=== PATIENT | female | born 1985 | race Caucasian/White ===

== ENCOUNTER 2022-09-30 15:29 | Inpatient (IN) | payer MEDICAID, SELFPAY ==
[2022-09-30 15:38] VITALS: BP 119/77; PULSE 76; RESP 18; TEMP 36.9; O2SAT 98; BMI 24.2
--- NOTE | 2022-09-30 15:44 | W.ED.PSYCHS ---
Documented by User: TRENA Milligan 09/30/22 16:31 HPI - Psych General: Chief Complaint: Psychiatric Symptoms Stated Complaint: psych eval/ hx si Time Seen by Provider: 09/30/22 15:44 Source: patient Mode of arrival: ambulatory Limitations: no limitations History of Present Illness: Patient is a 37-year-old female with a history of PTSD, bipolar, anxiety, depression here for complaints of worsening mental health. She states she takes Gabapentin and BuSpar and was recently started on Lamictal a few weeks ago by her psychiatrist at [facility]. She states approximately a month ago she overdosed on methamphetamine, alcohol, Gabapentin, and BuSpar. She states she was extremely sick for over a week and feels like her body has been out of whack ever since . She is reporting worsening anxiety and severe PTSD with nightmares and frequent awakenings. She states she is not currently suicidal but feels she does not trust herself at home MD complaint: feels depressed Onset (ago): day(s) Context: new medication(s) (lamictal a few wks ago) and significant life stressor Associated psychiatric symptoms: depression, racing thoughts and other (PTSD nightmares) Associated symptoms: Reports depression; Deny auditory hallucinations, visual hallucinations, homicidal ideation or suicidal ideation Treatments prior to arrival: none If self harm: admits thoughts of self harm Review of Systems Const: Denies: fever(s) or chills Card: Denies: chest pain, palpitations, lightheadedness or syncope Resp: Denies: dyspnea GI: Denies: abdominal pain, nausea, vomiting or diarrhea Skin/Breast: Denies: rash Neuro: Denies: headache(s) Psych: Reports: anxiety, depression, panic attacks, sleeping less and difficulty concentrating; Denies: visual hallucinations, auditory hallucinations, suicidal ideation or homicidal ideation Physical Exam Const: COMMON NORMALS: no acute distress, average body habitus, patient oriented x3, no limitations, healthy appearing, alert and well nourished GENERAL APPEARANCE: cooperative and well kempt Resp: COMMON NORMALS: normal respiratory effort and clear to auscultation bilaterally AUSCULTATION: clear to auscultation bilaterally Cardio: COMMON NORMALS: regular rate and regular rhythm RATE: regular rate RHYTHM: regular rhythm Extremity: GENERAL: Yes normal exam except as noted Neuro: PALOMA COMA SCALE: document GCS findings Pal[place] coma scale eye opening: Spontaneous [place] coma scale verbal response: Orientated [place] coma scale motor response: Obey commands [place] coma scale total score: 15 COMMON NORMALS: patient oriented x3 SENSORIUM/ORIENTATION: Yes alert Psych: COMMON NORMALS: mental status grossly normal, Normal thought process present, cooperative, normal affect, speech normal, activity/motor behavior normal, denies hallucinations, denies homicidal ideation and denies suicidal ideation APPEARANCE: Yes grossly normal and Yes well kempt ATTITUDE: Yes calm ACTIVITY/MOTOR BEHAVIOR: Yes appropriate eye contact and No psychomotor agitation SPEECH: Yes normal speech MOOD & AFFECT: Yes euthymic mood THOUGHT PROCESS: Normal thought process present THOUGHT CONTENT: Yes Normal thought content present ATTENTION/CONCENTRATION: Yes attention grossly intact and Yes concentration grossly intact MEMORY/COGNITION: Yes memory grossly intact and Yes cognition grossly intact INSIGHT: Good insight present (Psych) JUDGEMENT: Good judgement present (Psych) Course Vital Signs: Vital signs: Vital Signs Temperature 98.4 F 09/30/22 15:38 Pulse Rate 76 09/30/22 15:38 Respiratory Rate 18 09/30/22 15:38 Blood Pressure 119/77 09/30/22 15:38 Pulse Oximetry 98 09/30/22 15:38 Oxygen Delivery Me thod Room Air 09/30/22 15:38 MDM - Psych Lab Data 09/30/22 16:45 09/30/22 16:45 Laboratory Results WBC 6.9 10^3/uL (4.0-10.0) 09/30/22 16:45 RBC 5.29 10^6/uL (4.1-5.3) 09/30/22 16:45 Hgb 16.1 g/dL (11.5-15.3) H 09/30/22 16:45 Hct 47.6 % (37.0-47.0) H 09/30/22 16:45 MCV 90.0 fl (81-99) 09/30/22 16:45 MCH 30.4 pg (28.0-34.0) 09/30/22 16:45 MCHC 33.8 g/dL (30.0-36.0) 09/30/22 16:45 RDW 12.2 % (12.1-15.1) 09/30/22 16:45 Plt Count 343 10^3/cmm (130-400) 09/30/22 16:45 MPV 9.0 fL (7.4-10.4) 09/30/22 16:45 Neut % (Auto) 53.3 % 09/30/22 16:45 Lymph % (Auto) 39.5 % 09/30/22 16:45 Calloway % (Auto) 5.4 % 09/30/22 16:45 Eos % (Auto) 0.9 % 09/30/22 16:45 Baso % (Auto) 0.6 % 09/30/22 16:45 Neut # (Auto) 3.69 10^3/uL (1.8-7.7) 09/30/22 16:45 Lymph # (Auto) 2.7 10^3/uL (0.8-4.8) 09/30/22 16:45 Calloway # (Auto) 0.4 10^3/uL (0.2-0.9) 09/30/22 16:45 Eos # (Auto) 0.1 10^3/uL (0.0-0.8) 09/30/22 16:45 Baso # (Auto) 0.0 10^3/uL (0.0-0.1) 09/30/22 16:45 Nucleated RBC % (auto) 0 % 09/30/22 16:45 Nucleated RBCs # 0.0 /100WBC 09/30/22 16:45 Sodium 142 mmol/L (136-145) 09/30/22 16:45 Potassium 4.1 mmol/L (3.5-5.1) 09/30/22 16:45 Chloride 105 mmol/L (98-107) 09/30/22 16:45 Carbon Dioxide 23 mmol/L (22-29) 09/30/22 16:45 Anion Gap 18.1 (5-19) 09/30/22 16:45 BUN 14 mg/dL (6-20) 09/30/22 16:45 Creatinine 0.8 mg/dL (0.5-0.9) 09/30/22 16:45 GFR Calculation 81.2 mL/min (90-130) L 09/30/22 16:45 Glucose 102 mg/dL (65-115) 09/30/22 16:45 Calculated Osmolality 295 mOsm/kg (285-295) 09/30/22 16:45 Calcium 10.4 mg/dL (8.5-10.5) 09/30/22 16:45 Total Bilirubin 0.3 mg/dL (0.15-1.2) 09/30/22 16:45 AST 17 U/L (0-32) 09/30/22 16:45 ALT 15 U/L (0-33) 09/30/22 16:45 Alkaline Phosphatase 81 U/L (35-105) 09/30/22 16:45 Total Protein 7.9 g/dL (6.6-8.7) 09/30/22 16:45 Albumin 5.3 g/dL (3.5-5.2) H 09/30/22 16:45 Globulin 2.6 g/dL (1.3-4.6) 09/30/22 16:45 TSH 1.66 uIU/mL (0.27-4.20) 09/30/22 16:45 HCG, Qual Negative (Negative) 09/30/22 16:45 Salicylates 0.5 mg/dL (3-10) L 09/30/22 16:45 Urine Opiates Screen Negative ng/mL (Negative) 09/30/22 16:47 Acetaminophen < 5.0 ug/mL (10-30) L 09/30/22 16:45 Ur Barbiturates Screen Negative ng/mL (Negative) 09/30/22 16:47 Ur Phencyclidine Scrn Negative ng/mL (Negative) 09/30/22 16:47 Ur Amphetamines Screen Negative ng/mL (Negative) 09/30/22 16:47 U Benzodiazepines Scrn Negative ng/mL (Negative) 09/30/22 16:47 Urine Cocaine Screen Negative ng/mL (Negative) 09/30/22 16:47 U Marijuana (THC) Screen Negative ng/mL (Negative) 09/30/22 16:47 Ethyl Alcohol < 10 mg/dL (0-10) 09/30/22 16:45 Discharge Plan Discharge Patient Disposition: Admitted As Inpatient Clinical Impression: Suicidal ideation Bipolar disorder Qualifiers: Active/Remission status: currently active Current bipolar episode type: mixed Current episode severity: moderate Qualified Code(s): F31.62 - Bipolar disorder, current episode mixed, moderate Condition: Stable Sign Out Sign Out Data: Patient Sign Out occurred on 09/30/22 at 17:15. Patient's care was discussed, and care was transferred from to Robert Palomino. Coding Level of Care Code ED Bacon Skinner for Evangelist Fwd Documented by User: CARMEN Best 09/30/22 18:21 HPI - Psych General: Chief Complaint: Psychiatric Symptoms Stated Complaint: psych eval/ hx si Time Seen by Provider: 09/30/22 15:44 Physical Exam Neuro: PALOMA COMA SCALE: document GCS findings [place] coma scale total score: 15 Course Vital Signs: Vital signs: Vital Signs Temperature 98.4 F 09/30/22 15:38 Pulse Rate 76 09/30/22 15:38 Respiratory Rate 18 09/30/22 15:38 Blood Pressure 119/77 09/30/22 15:38 Pulse Oximetry 98 09/30/22 15:38 Oxygen Delivery Me thod Room Air 09/30/22 15:38 MDM - Psych Medical Decision Making 37-year-old female comes in today for complaints of increased anxiety, racing thoughts, nightmares, and feeling of harming herself. Patient denies that these are homicidal or suicidal thoughts. Patient is restless and hyperactive. Patient does have a history of bipolar disorder, substance abuse disorder, and PTSD. Patient reports the last time she used alcohol and methamphetamines was about 1 month ago when she overdosed. Patient recently was started on Lamictal by [facility]. Patient also takes buspirone, bupropion, gabapentin and Depo-Provera. Differential diagnosis includes but not limited to suicidal ideation, bipolar disorder, anxiety. Feel patient needs admission to hospital for protection of self, and exacerbation of bipolar disorder lucila. Laboratory values were unremarkable. Patient did test negative for alcohol and drugs. Lab Data 09/30/22 16:45 09/30/22 16:45 Laboratory Results WBC 6.9 10^3/uL (4.0-10.0) 09/30/22 16:45 RBC 5.29 10^6/uL (4.1-5.3) 09/30/22 16:45 Hgb 16.1 g/dL (11.5-15.3) H 09/30/22 16:45 Hct 47.6 % (37.0-47.0) H 09/30/22 16:45 MCV 90.0 fl (81-99) 09/30/22 16:45 MCH 30.4 pg (28.0-34.0) 09/30/22 16:45 MCHC 33.8 g/dL (30.0-36.0) 09/30/22 16:45 RDW 12.2 % (12.1-15.1) 09/30/22 16:45 Plt Count 343 10^3/cmm (130-400) 09/30/22 16:45 MPV 9.0 fL (7.4-10.4) 09/30/22 16:45 Neut % (Auto) 53.3 % 09/30/22 16:45 Lymph % (Auto) 39.5 % 09/30/22 16:45 Calloway % (Auto) 5.4 % 09/30/22 16:45 Eos % (Auto) 0.9 % 09/30/22 16:45 Baso % (Auto) 0.6 % 09/30/22 16:45 Neut # (Auto) 3.69 10^3/uL (1.8-7.7) 09/30/22 16:45 Lymph # (Auto) 2.7 10^3/uL (0.8-4.8) 09/30/22 16:45 Calloway # (Auto) 0.4 10^3/uL (0.2-0.9) 09/30/22 16:45 Eos # (Auto) 0.1 10^3/uL (0.0-0.8) 09/30/22 16:45 Baso # (Auto) 0.0 10^3/uL (0.0-0.1) 09/30/22 16:45 Nucleated RBC % (auto) 0 % 09/30/22 16:45 Nucleated RBCs # 0.0 /100WBC 09/30/22 16:45 Sodium 142 mmol/L (136-145) 09/30/22 16:45 Potassium 4.1 mmol/L (3.5-5.1) 09/30/22 16:45 Chloride 105 mmol/L (98-107) 09/30/22 16:45 Carbon Dioxide 23 mmol/L (22-29) 09/30/22 16:45 Anion Gap 18.1 (5-19) 09/30/22 16:45 BUN 14 mg/dL (6-20) 09/30/22 16:45 Creatinine 0.8 mg/dL (0.5-0.9) 09/30/22 16:45 GFR Calculation 81.2 mL/min (90-130) L 09/30/22 16:45 Glucose 102 mg/dL (65-115) 09/30/22 16:45 Calculated Osmolality 295 mOsm/kg (285-295) 09/30/22 16:45 Calcium 10.4 mg/dL (8.5-10.5) 09/30/22 16:45 Total Bilirubin 0.3 mg/dL (0.15-1.2) 09/30/22 16:45 AST 17 U/L (0-32) 09/30/22 16:45 ALT 15 U/L (0-33) 09/30/22 16:45 Alkaline Phosphatase 81 U/L (35-105) 09/30/22 16:45 Total Protein 7.9 g/dL (6.6-8.7) 09/30/22 16:45 Albumin 5.3 g/dL (3.5-5.2) H 09/30/22 16:45 Globulin 2.6 g/dL (1.3-4.6) 09/30/22 16:45 TSH 1.66 uIU/mL (0.27-4.20) 09/30/22 16:45 HCG, Qual Negative (Negative) 09/30/22 16:45 Salicylates 0.5 mg/dL (3-10) L 09/30/22 16:45 Urine Opiates Screen Negative ng/mL (Negative) 09/30/22 16:47 Acetaminophen < 5.0 ug/mL (10-30) L 09/30/22 16:45 Ur Barbiturates Screen Negative ng/mL (Negative) 09/30/22 16:47 Ur Phencyclidine Scrn Negative ng/mL (Negative) 09/30/22 16:47 Ur Amphetamines Screen Negative ng/mL (Negative) 09/30/22 16:47 U Benzodiazepines Scrn Negative ng/mL (Negative) 09/30/22 16:47 Urine Cocaine Screen Negative ng/mL (Negative) 09/30/22 16:47 U Marijuana (THC) Screen Negative ng/mL (Negative) 09/30/22 16:47 Ethyl Alcohol < 10 mg/dL (0-10) 09/30/22 16:45 Discharge Plan Discharge Patient Disposition: Admitted As Inpatient Clinical Impression: Suicidal ideation Bipolar disorder Qualifiers: Active/Remission status: currently active Current bipolar episode type: mixed Current episode severity: moderate Qualified Code(s): F31.62 - Bipolar disorder, current episode mixed, moderate Condition: Stable Sign Out Sign Out Data: Patient Sign Out occurred on 09/30/22 at 17:15. Patient's care was discussed, and care was transferred from to Robert Palomino. Coding Level of Care Code ED Bacon Skinner for Evangelist Campa
[2022-09-30 17:01] LABS: Basophils % 0.6 %; Eosinophils # 0.1 10^3/uL (0.0-0.8); Eosinophils % 0.9 %; Hematocrit 47.6 % (37.0-47.0); Hemoglobin 16.1 g/dL (11.5-15.3); Lymphocytes # 2.7 10^3/uL (0.8-4.8); Lymphocytes % 39.5 %; Mean Corpuscular HGB Conc 33.8 g/dL (30.0-36.0); Mean Corpuscular Hemoglobin 30.4 pg (28.0-34.0); Monocytes # 0.4 10^3/uL (0.2-0.9); Monocytes % 5.4 %; Neutrophils # 3.69 10^3/uL (1.8-7.7); Neutrophils % 53.3 %; Nucleated Red Blood Cells % 0 %; Platelet Count 343 10^3/cmm (130-400); Red Blood Count 5.29 10^6/uL (4.1-5.3); Red Cell Distribution Width 12.2 % (12.1-15.1); White Blood Count 6.9 10^3/uL (4.0-10.0)
[2022-09-30 17:13] LABS: Amphetamines Screen Urine Negative (Negative); Barbiturates Screen Urine Negative (Negative); Benzodiazepines Screen Urine Negative (Negative); Cocaine Screen Urine Negative (Negative); Opiate Screen Urine Negative (Negative); PCP Screen Urine Negative (Negative); THC Screen Urine Negative (Negative)
[2022-09-30 17:32] LABS: Alanine Aminotransferase 15 U/L (0-33); Albumin Level 5.3 g/dL (3.5-5.2); Alkaline Phosphatase 81 U/L (35-105); Anion Gap 18.1 (5-19); Aspartate Amino Transferase 17 U/L (0-32); Blood Urea Nitrogen 14 mg/dL (6-20); Calcium 10.4 mg/dL (8.5-10.5); Carbon Dioxide 23 mmol/L (22-29); Chloride 105 mmol/L (98-107); Globulin 2.6 g/dL (1.3-4.6); Glomerular Filtration Rate 81.2 mL/min (90-130); Glucose 102 mg/dL (65-115); Osmolality Calculated 295 mOsm/kg (285-295); Potassium 4.1 mmol/L (3.5-5.1); Salicylate 0.5 mg/dL (3-10); Sodium 142 mmol/L (136-145); Thyroid Stimulating Hormone 1.66 uIU/mL (0.27-4.20); Total Bilirubin 0.3 mg/dL (0.15-1.2); Total Protein 7.9 g/dL (6.6-8.7)
[2022-09-30 17:33] LABS: Acetaminophen < 5.0 ug/mL (10-30); Alcohol Level < 10 mg/dL (0-10)
[2022-09-30 17:43] LABS: HCG, Serum Qual Negative (Negative)
[2022-09-30 18:28] VITALS: BP 123/72; PULSE 80; RESP 18; O2SAT 98
[2022-09-30] MEDS: gabapentin 300 mg Capsule 600 MG PO (21:23)
[2022-09-30] MEDS: BuSPIRONE 10 mg Tablet 30 MG PO (21:24)
--- NOTE | 2022-09-30 21:43 | PC.NURSE ---
Pt arrived to NPU prior to shift change. Pt is anxious about admission and medication management. Denies SI at this time.
[2022-09-30 22:00] VITALS: BP 116/75; PULSE 82; RESP 18; TEMP 36.9; O2SAT 98
[2022-10-01 06:00] VITALS: BP 116/75; PULSE 108; RESP 16; TEMP 37.1; O2SAT 98
--- NOTE | 2022-10-01 09:13 | PC.OT ---
OT EVALUATION ATTEMPTED; PATIENT WAS VISITING WITH THE DOCTOR AND UNAVAILABLE FOR OT EVALUATION
[2022-10-01] MEDS: gabapentin 300 mg Capsule 600 MG PO ×2 (09:57→20:26)
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
[2022-10-01] MEDS: lamoTRIgine 25 mg Tablet 50 MG PO (10:01)
[2022-10-01] MEDS: sertraline 50 mg Tablet PO (11:10)
[2022-10-01 13:29] VITALS: BP 104/72; PULSE 73; RESP 16; TEMP 37.1; O2SAT 98
[2022-10-01 14:15] LABS: Hepatitis A Antibody IgM Non-Reactive (Nonreactive); Hepatitis B Core AB, Total Non-Reactive (Nonreactive); Hepatitis B Surface Antigen Non-Reactive (Nonreactive); Hepatitis C Virus Antibody Non-Reactive (Nonreactive)
[2022-10-01 14:24] LABS: Hepatitis B Surface AB > 1000.0 (11.5-1000)
[2022-10-01 15:02] VITALS: BP 104/72; PULSE 73; RESP 16; TEMP 37.1; O2SAT 98
[2022-10-01] MEDS: acetaminophen 325 mg Tablet 650 MG PO (15:08)
[2022-10-01] MEDS: BuSPIRONE 10 mg Tablet 20 MG PO ×2 (15:09→20:27)
[2022-10-01 20:23] VITALS: BP 113/72; PULSE 79; RESP 16; TEMP 36.9; O2SAT 98
[2022-10-02 06:00] VITALS: BP 95/70; PULSE 80; RESP 16; TEMP 36.8; O2SAT 98
[2022-10-02] MEDS: gabapentin 300 mg Capsule 600 MG PO ×2 (09:53→20:43)
[2022-10-02] MEDS: BuSPIRONE 10 mg Tablet 20 MG PO ×3 (09:54→20:43)
[2022-10-02] MEDS: lamoTRIgine 25 mg Tablet 50 MG PO (09:54)
[2022-10-02] MEDS: sertraline 50 mg Tablet PO (09:54)
[2022-10-02] MEDS: acetaminophen 325 mg Tablet 650 MG PO (12:29)
[2022-10-02 14:00] VITALS: BP 98/69; PULSE 92; RESP 17; TEMP 36.8; O2SAT 97
--- NOTE | 2022-10-02 14:24 | P.NPUPN_ITS ---
Subjective NPU Subjective: The patient is a 37-year-old white female with methamphetamine dependence, PTSD, dysthymia who was admitted with suicidal ideation. She had continued to report feeling depressed and anxious. She had reported having significant problems with controlling her worry. She had reported having worry about the future. She had reported that she had been struggling with depression for several mon ths. She continued to report low energy. She was able to attend groups. She had reported having tremendous difficulties with managing her seemingly imperceptible triggers that led to her use of methamphetamine despite her adverse consequences. She denied any psychotic symptoms. She had reported extreme dysphoria over the last few weeks despite having not used methamphetamine for over 4 weeks. She had endorsed some continued hopelessness. Mental Status Exam MSE Comments: She is a casually dressed white female who appears older than her stated age with the average body habitus. She was alert and oriented to person place and time. Her gait appeared within normal limits. There was no evidence of any abnormal involuntary motor movements tics or tremors appreciated. There was continued evidence of psychomotor retardation. Her speech was normal in regards to rate rhythm and prosody. Her mood was described as depressed. She was less tearful today. Her affect was restricted in range and mood-congruent. Her thought process was linear logical and goal-directed. Her thought content showed evidence of passive suicidal ideation with no active plan. She denied any homicidal ideation. There was no clear evidence of delusional thinking. She did not appear to be responding to internal stimuli. Her attention was variable. Her recent and remote memory appeared grossly intact. Her insight is poor. Her judgment is poor. Her impulse control appears limited. Vitals/I&O/Wt Last Vital Signs Temp 98.2 F 10/02/22 14:00 Pulse 92 10/02/22 14:00 Resp 17 10/02/22 14:00 BP 98/69 10/02/22 14:00 Pulse Ox 97 10/02/22 14:00 O2 Del Method Room Air 10/02/22 06:00 Weight last 48 hrs Weight 68.039 kg Data NPU 09/30/22 16:45 09/30/22 16:45 A&P Assessment and plan (1) Methamphetamine dependence: (2) Dysthymia: (3) Depression with suicidal ideation: (4) PTSD (post-traumatic stress disorder): Plan This is a 37-year-old white female who presents with depressed mood with suicidal ideation and significant anxiety with some symptoms suggestive of posttraumatic stress disorder along with methamphetamine dependence. Patient would likely benefit from medication adjustments. 1.? ? Engage? patient in individual ,milieu, and group therapy ?2. ?Continue zoloft at 50mg in am to target depression,continue buspar at 20mg tid with plan to taper. Continue Prazosin 2mg at night. Referral for [facility] for Methamphetamine Dependence-Digital Application. ?3. ? TO-15 minute checks on the unit. ?4.? Recommend sober living treatment at the highest level of care to which the patient is willing to commit. Involuntary Hold Information 96 Hour Hold: 96 Hour Involuntary Admission: No Attestations NPU Medical Necessity Statement*: Inpatient hospitalization is medically necessary and deemed to be the clinically appropriate intervention at this time. We will monitor and initiate medications as indicated. Her likely length of stay will be 4 to 6 days. Coding Level of Care Code Acute Code for [facility] Diagnoses Methamphetamine dependence F15.20 Dysthymia F34.1 Depression with suicidal ideation F32.A; R45.851 PTSD (post-traumatic stress disorder) F43.10
[2022-10-02] MEDS: prazosin 1 mg Capsule 2 MG PO (20:44)
[2022-10-02 20:58] VITALS: BP 107/66; PULSE 73; RESP 16; TEMP 36.9; O2SAT 97
[2022-10-03 06:00] VITALS: BP 101/65; PULSE 111; RESP 16; TEMP 36.7; O2SAT 98
[2022-10-03] MEDS: gabapentin 300 mg Capsule 600 MG PO ×2 (09:34→23:07)
[2022-10-03] MEDS: lamoTRIgine 25 mg Tablet 50 MG PO (09:35)
[2022-10-03] MEDS: sertraline 50 mg Tablet PO (09:35)
[2022-10-03] MEDS: loratadine 10 mg Tablet PO (09:35)
[2022-10-03] MEDS: BuSPIRONE 10 mg Tablet 20 MG PO ×3 (09:35→23:07)
[2022-10-03 14:00] VITALS: BP 115/68; PULSE 94; RESP 16; TEMP 37; O2SAT 98
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
--- NOTE | 2022-10-03 20:54 | PC.NURSE ---
Patient refused all night meds, Buspar 20mg, Gabapentin 600mg & Prazosin 2mg. She states she is trying to wean off of all medication .
[2022-10-03 22:00] VITALS: BP 106/68; PULSE 75; RESP 16; TEMP 37.1; O2SAT 98
--- NOTE | 2022-10-04 08:29 | PC.NURSE ---
Patient refusing all medications this morning. She states, I just don't like them. This RN asked her to elaborate to which she replied, I don't know. I'm just going to talk to the doctor before I take them. This RN explained the benefits of the medications and the effects it could possibly have if not taken. Patient acknowledged this, but continued to refuse. Will attempt to offer medications again within the hour.
[2022-10-04] MEDS: lamoTRIgine 25 mg Tablet 50 MG PO (09:17)
[2022-10-04] MEDS: BuSPIRONE 10 mg Tablet 20 MG PO (09:17)
[2022-10-04] MEDS: gabapentin 300 mg Capsule 600 MG PO (09:18)
[2022-10-04] MEDS: sertraline 50 mg Tablet 75 MG PO (09:18)
[2022-10-04] MEDS: loratadine 10 mg Tablet PO (09:18)
[2022-10-04] MEDS: acetaminophen 325 mg Tablet 650 MG PO (09:20)
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
[2022-10-04 12:55] VITALS: BP 106/68; PULSE 75; RESP 16; TEMP 37.1; O2SAT 98
[2022-10-05 11:44] LABS: Lamotrigine (Lamictal) Level 0.7 mcg/mL (2.5-15.0)
== END 2022-10-04 13:36 | disposition home or self-care (01) | DRG 881 ==
LOC: ER 18:04 → NP 18:30
PROVIDERS: Physician Assistant; Admitting Provider Psychiatry & Neurology Psychiatry; Emergency Provider Nurse Practitioner Family; PCP Internal Medicine; Visit Provider Psychiatry & Neurology Psychiatry
DX: F32.A Depression, unspecified (principal); R45.851 Suicidal ideations; F15.21 Other stimulant dependence, in remission; F41.9 Anxiety disorder, unspecified; F34.1 Dysthymic disorder; F43.10 Post-traumatic stress disorder, unspecified; Z81.1 Family history of alcohol abuse and dependence
CPT/HCPCS: 36415; 80053; 80175; 80306; 80307; 84443; 84703; 85025; 86705; 86706; 86709; 86803; 87340; 97150; 97165; 99238; 99285